=== PATIENT | female | born 1970 | race Caucasian/White ===

== ENCOUNTER 2018-09-28 11:09 | Inpatient (IN) | payer OTHER, BC ==
[2018-09-28] MEDS ORDERED: FENTAnyl 50 MCG/ML VIAL IV (13:00)
[2018-09-28] MEDS ORDERED: ALBUTEROL 0.083% (NEB) 2.5 MG/3 ML AMP HHN (13:00)
[2018-09-28] MEDS ORDERED: DIPHENHYDRAMINE 50 MG INJ IV (13:00)
[2018-09-28] MEDS ORDERED: HYDROmorphONE 1 MG/5 ML IV SYRINGE IV ×2 (13:00)
[2018-09-28] MEDS ORDERED: LEVALBUTEROL (NEB) 0.63 MG/3 ML AMP HHN (13:00)
[2018-09-28] MEDS ORDERED: MEPERIDINE 25 MG INJ IV (13:00)
[2018-09-28] MEDS ORDERED: morphine SULFATE/PF (10 MG/10 ML) INJ (13:14)
[2018-09-28] MEDS ORDERED: MIDAZOLAM 1 MG/ML 2 ML INJ (13:15)
[2018-09-28] MEDS ORDERED: FENTAnyl 50 MCG/ML VIAL ×2 (13:34→15:08)
[2018-09-28] MEDS ORDERED: CEFAZOLIN 1 GM INJ (13:53)
[2018-09-28] MEDS ORDERED: ROCURONIUM 50 MG INJ (13:53)
[2018-09-28] MEDS ORDERED: SUCCINYLCHOLINE CHLORIDE 100 MG/5 ML SYG IV (13:53)
[2018-09-28] MEDS ORDERED: PROPOFOL 20 ML (13:53)
[2018-09-28] MEDS ORDERED: LIDOCAINE 100 MG SYRINGE (13:53)
[2018-09-28] MEDS ORDERED: ROPIVACAINE 0.5 % 30 ML VIAL (14:57)
[2018-09-28] MEDS ORDERED: GLYCOPYRROLATE 0.4 MG INJ (15:00)
[2018-09-28] MEDS ORDERED: NEOSTIGMINE 3 MG/3 ML SYRINGE (15:00)
[2018-09-28] MEDS ORDERED: SUGAMMADEX SODIUM 200 MG/2 ML VIAL IV (15:34)
[2018-09-28] MEDS: SURGIFOAM POWDER 1 GM KIT MM (15:35)
[2018-09-28] MEDS: THROMBIN (BOVINE) 5,000 UNIT VIAL TP (15:35)
[2018-09-28] MEDS: METOCLOPRAMIDE 10 MG INJ IV (16:29)
[2018-09-28] MEDS: ONDANSETRON 4 MG INJ IV ×2 (16:29→23:00)
[2018-09-28] MEDS: HYDROmorphONE 1 MG/5 ML IV SYRINGE IV (17:38)
[2018-09-28] MEDS: FENTAnyl 50 MCG/ML VIAL IV (17:38)
[2018-09-28] MEDS: OXYCODONE/ACETAMINOPHEN (5/325) TAB PO (18:55)
[2018-09-29 05:25] LABS: ADD MAN DIFF? NO
[2018-09-29 05:31] LABS: BASOPHILS % 0.3 % (0.0-2.0); EOSINOPHILS % 0.2 % (0.0-7.0); HEMATOCRIT 24.2 % (37.0-47.0); HEMOGLOBIN 7.8 g/dl (12.0-16.0); LYMPHOCYTES # 2.5 10^3/ul (0.8-2.9); LYMPHOCYTES % 22.7 % (15.0-51.0); MEAN CORPUSCULAR HEMOGLOBIN 27.1 pg (29.0-33.0); MEAN CORPUSCULAR HGB CONC 32.2 g/dl (32.0-37.0); MEAN PLATELET VOLUME 9.8 fl (7.4-10.4); MONOCYTE # 0.9 10^3/ul (0.3-0.9); MONOCYTES % 8.6 % (0.0-11.0); NEUTROPHIL # 7.5 10^3/ul (1.6-7.5); NEUTROPHILS % 67.8 % (39.0-77.0); PLATELET COUNT 234 10^3/UL (140-415); RED BLOOD COUNT 2.88 10^6/ul (4.20-5.40); RED CELL DISTRIBUTION WIDTH 14.4 % (11.5-14.5)
[2018-09-29] MEDS: IBUPROFEN 600 MG TAB PO ×2 (06:34→18:08)
[2018-09-29] MEDS: OXYCODONE/ACETAMINOPHEN (5/325) TAB PO ×3 (08:46→19:26)
[2018-09-30] MEDS: OXYCODONE/ACETAMINOPHEN (5/325) TAB PO (02:39)
[2018-09-30] MEDS: IBUPROFEN 600 MG TAB PO ×2 (04:02→15:20)
[2018-09-30 09:15] LABS: ADD MAN DIFF? NO
[2018-09-30 09:25] LABS: BASOPHILS % 0.3 % (0.0-2.0); EOSINOPHILS # 0.2 10^3/ul (0.0-0.5); EOSINOPHILS % 1.9 % (0.0-7.0); HEMATOCRIT 25.5 % (37.0-47.0); LYMPHOCYTES % 16.7 % (15.0-51.0); MEAN CORPUSCULAR HEMOGLOBIN 26.9 pg (29.0-33.0); MEAN CORPUSCULAR HGB CONC 31.4 g/dl (32.0-37.0); MEAN CORPUSCULAR VOLUME 85.9 fl (82.0-101.0); MONOCYTE # 0.9 10^3/ul (0.3-0.9); MONOCYTES % 7.4 % (0.0-11.0); NEUTROPHIL # 8.6 10^3/ul (1.6-7.5); NEUTROPHILS % 73.2 % (39.0-77.0); PLATELET COUNT 257 10^3/UL (140-415); RED BLOOD COUNT 2.97 10^6/ul (4.20-5.40); RED CELL DISTRIBUTION WIDTH 14.1 % (11.5-14.5)
[2018-09-30 09:25] LABS: WHITE BLOOD COUNT 11.8 10^3/ul (4.8-10.8)
[2018-09-30] MEDS: ASA/ACETAMINOPHEN/CAFF TAB PO (09:34)
[2018-09-30] MEDS: FERROUS SULFATE (EC) 325 MG TAB PO ×2 (10:39→20:31)
[2018-09-30] MEDS: DOCUSATE SODIUM 100 MG CAP PO (10:39)
[2018-10-01] MEDS: IBUPROFEN 600 MG TAB PO ×3 (00:41→16:19)
[2018-10-01 05:09] LABS: ADD MAN DIFF? NO
[2018-10-01 05:11] LABS: BASOPHILS % 0.4 % (0.0-2.0); EOSINOPHILS # 0.4 10^3/ul (0.0-0.5); EOSINOPHILS % 3.8 % (0.0-7.0); HEMATOCRIT 25.2 % (37.0-47.0); LYMPHOCYTES # 2.4 10^3/ul (0.8-2.9); LYMPHOCYTES % 24.1 % (15.0-51.0); MEAN CORPUSCULAR HEMOGLOBIN 26.6 pg (29.0-33.0); MEAN CORPUSCULAR HGB CONC 31.7 g/dl (32.0-37.0); MEAN CORPUSCULAR VOLUME 83.7 fl (82.0-101.0); MEAN PLATELET VOLUME 9.8 fl (7.4-10.4); MONOCYTE # 0.8 10^3/ul (0.3-0.9); MONOCYTES % 8.4 % (0.0-11.0); NEUTROPHIL # 6.2 10^3/ul (1.6-7.5); NEUTROPHILS % 62.8 % (39.0-77.0); PLATELET COUNT 291 10^3/UL (140-415); RED BLOOD COUNT 3.01 10^6/ul (4.20-5.40); RED CELL DISTRIBUTION WIDTH 14.3 % (11.5-14.5)
[2018-10-01 05:11] LABS: WHITE BLOOD COUNT 9.8 10^3/ul (4.8-10.8)
[2018-10-01] MEDS: FERROUS SULFATE (EC) 325 MG TAB PO ×2 (08:33→20:41)
[2018-10-01] MEDS: DOCUSATE SODIUM 100 MG CAP PO (20:41)
[2018-10-01] MEDS: MAGNESIUM HYDROXIDE 30ML CUP PO (20:41)
[2018-10-02] MEDS: IBUPROFEN 600 MG TAB PO (03:42)
[2018-10-02] MEDS: DOCUSATE SODIUM 100 MG CAP PO (09:20)
[2018-10-02] MEDS: FERROUS SULFATE (EC) 325 MG TAB PO (09:20)
== END 2018-10-02 11:12 | disposition home or self-care (01) | DRG 743 ==
LOC: REC 11:09 → MS1 17:28
PROVIDERS: Obstetrics & Gynecology Obstetrics
PROC: 0UT90ZL Resection of Uterus, Supracervical, Open Approach (ICD-10-PCS; principal; 2018-09-28 12:00)
PROC: 0UT70ZZ Resection of Bilateral Fallopian Tubes, Open Approach (ICD-10-PCS; 2018-09-28 12:00)
PROC: 0U900ZZ Drainage of Right Ovary, Open Approach (ICD-10-PCS; 2018-09-28 12:00)
DX: D25.2 Subserosal leiomyoma of uterus (principal); N92.1 Excessive and frequent menstruation with irregular cycle; N83.201 Unspecified ovarian cyst, right side; N70.11 Chronic salpingitis; Z98.51 Tubal ligation status
CPT/HCPCS: 71045; 85025; 86850; 86900; 86901; 87086; 88309